=== PATIENT | female | born 1930 | race Caucasian/White ===

== ENCOUNTER → 2017-04-29 | Outpatient (CLI) | payer OTHER ==
[~2017-04-29] MED LIST: CHOL400C7 PO; METO25TA3 PO; PSYL58.69 PO; SERT50TA PO; WARF2TAB PO; ZINC220C4 PO
== END | disposition home or self-care (01) ==
LOC: C.RDSM 12:56
PROVIDERS: ATTEND Physical Medicine & Rehabilitation Sports Medicine
DX: Z96.652 Presence of left artificial knee joint (principal)